=== PATIENT | male | born 1990 | race Caucasian/White ===

== ENCOUNTER 2023-11-29 09:28 | Outpatient (CLI) | payer OTHER, SELFPAY ==
--- NOTE | ~2023-11-29 | US_ITS ---
COMPLETE ABDOMINAL ULTRASOUND Ordering provider: Abe Tian, [place] History: . Total bilirubin above reference range . Comparison: None. FINDINGS: LIVER: Normal size and echotexture. No focal hepatic lesions or perihepatic fluid collections are marta ntified. Normal flow of the portal vein. GALLBLADDER: Echogenic foci along the wall suggestive of pulmonary. The largest measures 0.4 x 0.4 x 0.5 cm. No evidence for stones, sludge, gallbladder wall thickening or pericholecystic fluid collecti ons. A negative sonographic Thornton's sign was noted. BILIARY DUCTS: No evidence for intra or extrahepatic biliary dilation. Common bile duct measures 2.2 mm in diameter which is within normal limits. PANCREAS: Normal echotexture and size. SPLEEN: Normal size, echotexture and contour and measures 11.7 cm in length. KIDNEYS: Right measures 10.3x 4.2x 5.1 cm in length and the left 10.4x 4.3x 5.3 cm in length. There i s no evidence for hydronephrosis, solid renal mass, renal calculi or perinephric fluid collections. N o renal cysts. UPPER ABDOMINAL AORTA: Normal in caliber. IVC: Patent. FREE FLUID: None. IMPRESSION: Gallbladder polyps. Otherwise, Unremarkable complete ultrasound of the abdomen. Reviewed, dictated and finalized at location A.
== END 2023-11-29 09:29 | disposition home or self-care (01) ==
PROVIDERS: PCP Family Medicine; Visit Provider Physician Assistant
DX: K82.4 Cholesterolosis of gallbladder (principal); R17 Unspecified jaundice
CPT/HCPCS: 76700